=== PATIENT | female | born 1990 | race Caucasian/White ===

== ENCOUNTER 2019-02-28 23:04 | Inpatient (IN) | payer OTHER ==
[2019-02-28] MEDS ORDERED: Sodium Chloride 0.9% 10 ML SDV IV PRN (23:36)
[2019-02-28] MEDS ORDERED: Sodium Chloride 0.9% 2.5 ML Syringe FLUSH PRN (23:36)
[2019-02-28] MEDS ORDERED: Sodium Chloride 0.9% 10 ML Syringe FLUSH PRN (23:36)
[2019-02-28] MEDS ORDERED: Lactated Ringers 1,000 ML IV SCH ×2 (23:45)
[2019-02-28] MEDS ORDERED: Oxytocin/0.9 % Sodium Chloride 30 UNIT/500 ML BAG IV SCH (23:45)
[2019-02-28] MEDS ORDERED: Magnesium Sulfate/Water 20 GM/500 ML BAG IV SCH (23:45)
[2019-02-28] MEDS ORDERED: Betamethasone Acetate/Betamethasone Sod Phosphate 30 MG/5 ML MDV IM ONE (23:46)
[2019-02-28] MEDS ORDERED: Ampicillin 2 GM AdvVial IV ONE (23:47)
[2019-02-28] MEDS ORDERED: Ampicillin 2 GM in Sodium Chloride 0.9% 100 ML IV ONE (23:47)
[2019-02-28] MEDS ORDERED: Magnesium Sulfate/Water 100 ML ONE (23:48)
[2019-02-28] MEDS ORDERED: Butorphanol 1 MG/ML SDV IVPUSH PRN (23:48)
[2019-02-28] MEDS ORDERED: Methylergonovine 0.2 MG/1 ML Amp IM PRN (23:48)
[2019-02-28] MEDS ORDERED: Lidocaine 1% 50 ML MDV INJECT PRN (23:48)
[2019-02-28] MEDS ORDERED: Sodium Chloride 0.9% 100 ML ONE (23:48)
[2019-02-28] MEDS ORDERED: Tranexamic Acid 1,000 MG in Sodium Chloride 0.9% 100 ML IV PRN (23:48)
[2019-02-28] MEDS ORDERED: Misoprostol 200 MCG Tab PO PRN (23:48)
[2019-02-28] MEDS ORDERED: Water For Irrigation,Sterile 1,000 ML Container IRR PRN (23:48)
[2019-02-28] MEDS ORDERED: Nalbuphine 10 MG/1 ML Vial IVPUSH PRN (23:48)
[2019-02-28] MEDS ORDERED: Carboprost Tromethamine 250 MCG/1 ML Amp IM PRN (23:48)
[2019-02-28] MEDS ORDERED: Betamethasone Acetate/Betamethasone Sod Phosphate 30 MG/5 ML MDV ONE (23:48)
[2019-02-28] MEDS ORDERED: Magnesium Sulfate/Water 4 GM in Premix Bag 1 BAG IV ONE (23:54)
[2019-02-28] MEDS ORDERED: Calcium Gluconate 10% 1 GM/10 ML SDV IVPUSH PRN (23:54)
[2019-03-01] MEDS ORDERED: Magnesium Sulfate/Water 20 GM/500 ML BAG ONE (00:03)
[2019-03-01] MEDS ORDERED: Ampicillin 1 GM in Sodium Chloride 0.9% 50 ML IV SCH ×2 (00:45→04:00)
--- NOTE | 2019-03-01 01:54 | US ---
INDICATION: labor, assess estimated weight. TECHNIQUE: Ultrasound OB pelvis transabdominal. Real-time patel-scale imaging of the fetus was performed as well as color Doppler and spectral Doppler analysis of the umbilical artery. COMPARISON: Obstetric ultrasound 02/24/2019 FINDINGS: Single live intrauterine gestation in vertex presentation with a clinical age of 32 weeks 3 days. The following biometric measurements were obtained: Biparietal diameter: 8.3 centimeters corresponding to 33 weeks 2 days. Head circumference: 31.4 centimeters corresponding with 35 weeks 2 days. Abdominal circumference: 26.5 centimeters corresponding to 30 weeks 5 days. Femur length: 6.5 centimeters corresponding to 33 weeks 5 days. The weight is estimated at 1927 grams, the 33rd percentile. IMPRESSION.: 1. Single live intrauterine gestation with a clinical age of 32 weeks 3 days in vertex presentation. 2. Limited obstetric ultrasound performed for weight has an estimated weight of 1927 grams which is at the 33rd percentile. Dictated by Andres Subramanian MD @ Mar 01 2019 1:50AM Signed by Dr. Andres Subramanian @ Mar 01 2019 1:53AM
--- NOTE | 2019-03-01 02:30 | HP ---
DATE OF : 1990 PRIMARY CARE PHYSICIAN: None PCP CHIEF COMPLAINT: Contractions. HISTORY OF PRESENT ILLNESS: This is a 29-year-old female G2, P0-1-0-1. She presents at 38 and 3/7th weeks gestation with contractions that are every 5 minutes and have been occurring over the last 2 to 3 hours. She denies loss of fluids. She reports normal movement. Her care has been complicated by history of delivery at 28 weeks with her prior . She has received 17 hydroxyprogesterone injections weekly since the early second trimester and has not had any labor symptoms until this evening. She is blood type O positive, rubella immune. She was noted to have a left ventricular echogenic focus on screening ultrasound in the office, otherwise, normal ultrasound. Her EDC is 04/23/2019 by LMP consistent with a 9-week ultrasound. PAST OBSTETRIC HISTORY: Significant for, at 2016 delivery of a 28 weeks and 6 days live born male born at [facility] in [place] transferred out of [place] due to labor. PAST MEDICAL HISTORY: Negative for chronic illness. PAST SURGICAL HISTORY: [place] tooth extraction. ALLERGIES: None known. MEDICATIONS: vitamins and Cathryn. FAMILY HISTORY: Significant for maternal aunt and maternal grandfather with lung cancer. Maternal grandmother with renal cancer. Paternal grandfather with heart disease. SOCIAL HISTORY: She is to her , [place]. She denies use of alcohol during the . She drinks rarely outside of the . She is a teacher. PHYSICAL EXAMINATION: VITAL SIGNS: Temperature is 97.3, pulse is 97, blood pressure is 126/73, heart tones are 125, moderate variability, accelerations present, no decelerations. Contractions are every 3 to 5 minutes, fairly strong in intensity. GENERAL: She is alert and oriented. She is breathing through her contractions. NECK: Supple without lymphadenopathy. LUNGS: Clear bilaterally. CV: Regular without murmur. ABDOMEN: Soft, gravid, nontender. EXTREMITIES: Showed trace edema. GENITOURINARY: Sterile speculum exam reveals no abnormal discharge. Cervical exam is 4 cm, 90%, -1 station. LABORATORY DATA: Cultures are obtained for group B strep. ASSESSMENT AND PLAN: A 32 and 3/7th weeks intrauterine with labor. Group B Strep culture has been obtained. Ampicillin initiated. She has been given betamethasone 12 mg IM for lung maturity. She has been counseled regarding prematurity. Her prior delivery was in [place] and her pocketed spring assembler was Dr. Stevenson and she prefers that the baby be transferred after delivery if that ensues to the facility where Dr. Stevenson practices, which is currently at [facility] in [place]. We will obtain an ultrasound for estimated weight and fluid, reassess cervical length. She has received magnesium 4 g bolus and 2 g/hour and if there is further cervical change, Catering Coordinator will be notified as well as the NICU in [place]. We will attempt tocolysis. I do not anticipate it will be successful based on her contraction pattern and strength. The patient understands this and that her cervical dilatation and situation is not stable for transfer and that the baby will be transferred after delivery with expected delivery here in [place]. LUL SCHULER /[id number]
[2019-03-01] MEDS ORDERED: Dextrose 10% in Water 500 ML ONE (04:13)
[2019-03-01] MEDS ORDERED: Docusate Sodium 100 MG Cap PO PRN (04:14)
[2019-03-01] MEDS ORDERED: Ibuprofen 400 MG Tab PO PRN (04:14)
[2019-03-01] MEDS ORDERED: Benzocaine/Menthol 20%-0.5% Spray 78 GM Cannister TOP PRN (04:14)
[2019-03-01] MEDS ORDERED: Acetaminophen 500 MG Tab PO PRN ×2 (04:14)
[2019-03-01] MEDS ORDERED: Methylergonovine 0.2 MG/1 ML Amp IM PRN (04:14)
[2019-03-01] MEDS ORDERED: Ibuprofen 800 MG Tab PO PRN (04:14)
[2019-03-01] MEDS ORDERED: Bisacodyl 10 MG Supp RECTAL PRN (04:14)
[2019-03-01] MEDS ORDERED: Lanolin 100% Cream 7 GM Tube TOP PRN (04:14)
[2019-03-01] MEDS ORDERED: Witch Hazel Medicated Pads 40/Jar TOP PRN (04:14)
--- NOTE | 2019-03-01 04:16 | PCM.OPNOTE ---
- General Post-Op/Procedure Note Date of Surgery/Procedure: 03/01/19 Findings: vaginal delivery of live male at 32/3 weeks gestation. Apgars 7 and 8. Weight pending. 3VC. Placenta intact. Pre Op Diagnosis: 32/3 IUP presenting in labor. Post-Op Diagnosis: same Primary Surgeon: Gisele Lerner Knotting Machine Operator Portable: Estela Pena Role of Knotting Machine Operator Portable: 4th year medical student EBL in mLs: 200 Condition: Good
--- NOTE | 2019-03-01 06:00 | OR ---
SURGEON: Gisele Lerner M.D. DATE OF PROCEDURE: 03/01/2019 PREOPERATIVE DIAGNOSES: 1. 32-3/7 weeks' intrauterine . 2. labor. POSTOPERATIVE DIAGNOSES: 1. 32-3/7 weeks' intrauterine . 2. labor. PROCEDURE: Magnesium tocolysis followed by spontaneous vaginal delivery. PRIMARY SURGEON: Gisele Lerner MD GREEN MEAT PACKER: Estela Pena MS4 ANESTHESIA: None. ESTIMATED BLOOD LOSS: Less than 200 mL. FINDINGS: A live born male. Apgars and weight are pending at the time of dictation. Placenta spontaneous, Tafoya, intact with 3 vessels. Perineum intact. BRIEF HISTORY: This is a 29-year-old female, G2, P0-1-0-1 with one prior 28-week delivery. She presents at 32-3/7 weeks' gestation in active spontaneous labor, initially 4 cm dilated with bulging membranes. She was started on magnesium. She received 2 g of ampicillin IV and then 12 mg of betamethasone IM. She was admitted for labor. Over the following hour, she changed to 5 cm dilatation. The magnesium was continued. Peds was notified of the cervical change, anticipated vaginal delivery locally as she was not stable for transfer. The senior care provider did call the transport team from [facility] in [place] for transporting the after , and she continued to slowly progress despite the magnesium. The magnesium was discontinued when she was 9 cm dilated, and she did receive her second dose of ampicillin immediately prior to delivery. DESCRIPTION OF PROCEDURE: With the patient in dorsal lithotomy position, the patient pushed intermittently over 30-minute time period to a 5 plus station. At this time, spontaneous rupture of membranes occurred with subsequent delivery of the head in the right occiput anterior position and the 's shoulders and body without any difficulty. The infant was bulb suctioned by nose and mouth, and the was briefly handed to the mother in the presence of senior care provider and the nurses attending delivery. The infant was a liveborn male. Apgars and weight are pending. After approximately 1 minute, the cord was doubly clamped and cut, and the was handed to the waiting senior care provider where supplemental oxygen using PEEP was provided. The had good tone and good color at the time of delivery and did cry spontaneously. Cord blood was collected for cord ABGs as well as routine cord blood sampling. Pitocin was initiated after delivery of the to assist with delivery of the placenta which was delivered spontaneously, Tafoya, intact, with 3 vessels. Upon inspection of the pelvis and perineum, there were no periurethral, vaginal sidewall, cervical, or rectal lacerations. EBL was less than 200 mL. There were no known complications. Mother and baby are both in LDR with the baby being attended to by senior care provider currently with PEEP, awaiting the NICU transport team. LUL SCHULER /[id number] MTDD
[2019-03-01 10:56] VITALS: BP 117/69; PULSE 83
--- NOTE | 2019-03-01 11:19 | PCM.PNPP ---
- General Info Date of Service: 03/01/19 Admission Dx/Problem (Free Text): PPD #0 after PTSVD, baby in [place] and patient would like to be discharged to be with her baby. She has minimal lochia, denies pain. She is pumping. Functional Status: Reports: Pain Controlled - Review of Systems General: Reports: No Symptoms HEENT: Reports: No Symptoms Pulmonary: Reports: No Symptoms Cardiovascular: Reports: No Symptoms Gastrointestinal: Reports: No Symptoms Genitourinary: Reports: No Symptoms Musculoskeletal: Reports: No Symptoms Skin: Reports: No Symptoms Neurological: Reports: No Symptoms Psychiatric: Reports: No Symptoms - Patient Data Vital Signs - Most Recent: Last Vital Signs Temp 37.3 C 03/01/19 09:00 Pulse 83 03/01/19 09:00 Resp 16 03/01/19 09:00 BP 117/69 03/01/19 09:00 Pulse Ox 97 03/01/19 09:00 Weight - Most Recent: 75.296 kg I&O - Last 24 Hours: Intake & Output 02/28/19 03/01/19 03/01/19 22:59 06:59 14:59 Output Total 600 Balance -600 Lab Results - Last 24 Hours: Laboratory Results - last 24 hr 02/28/19 03/01/19 03/01/19 Range/Units 23:15 00:03 00:03 WBC 15.41 H (4.0-11.0) K/uL RBC 3.95 L (4.30-5.90) M/uL Hgb 11.4 L (12.0-16.0) g/dL Hct 33.8 L (36.0-46.0) % MCV 85.6 (80.0-98.0) fL MCH 28.9 (27.0-32.0) pg MCHC 33.7 (31.0-37.0) g/dL RDW Std Deviation 42.6 (28.0-62.0) fl RDW Coeff of Philippe 14 (11.0-15.0) % Plt Count 242 (150-400) K/uL MPV 11.00 (7.40-12.00) fL Nucleated RBC % 0.0 /100WBC Nucleated RBCs # 0 K/uL Cord ABG pH (7.18-7.38) Cord ABG Base Excess (-10--2) Cord VBG pH (7.25-7.45) Cord VBG Base Excess (-10--2) Magnesium (1.8-2.4) mg/dL Fibronectin POSITIVE Blood Type O POSITIVE Antibody Screen NEGATIVE 03/01/19 03/01/19 03/01/19 Range/Units 00:03 03:50 10:01 WBC (4.0-11.0) K/uL RBC (4.30-5.90) M/uL Hgb 11.7 L (12.0-16.0) g/dL Hct 34.9 L (36.0-46.0) % MCV (80.0-98.0) fL MCH (27.0-32.0) pg MCHC (31.0-37.0) g/dL RDW Std Deviation (28.0-62.0) fl RDW Coeff of Philippe (11.0-15.0) % Plt Count (150-400) K/uL MPV (7.40-12.00) fL Nucleated RBC % /100WBC Nucleated RBCs # K/uL Cord ABG pH 7.320 (7.18-7.38) Cord ABG Base Excess -7 (-10--2) Cord VBG pH 7.346 (7.25-7.45) Cord VBG Base Excess -7 (-10--2) Magnesium 1.5 L (1.8-2.4) mg/dL Fibronectin Blood Type Antibody Screen Med Orders - Current: Current Medications Acetaminophen (Tylenol Extra Strength) 500 mg PO Q4H PRN PRN Reason: Pain Acetaminophen (Tylenol Extra Strength) 1,000 mg PO Q4H PRN PRN Reason: Pain Benzocaine/Menthol (Dermoplast Pain Relief 20%-0.5% Dwarf) 78 gm TOP ASDIRECTED PRN PRN Reason: Perineal Comfort Measure Bisacodyl (Dulcolax) 10 mg RECTAL ONETIME PRN PRN Reason: Constipation Docusate Sodium (Colace) 100 mg PO BID PRN PRN Reason: Constipation Emollient Ointment (Lansinoh Hpa) 0 gm TOP ASDIRECTED PRN PRN Reason: Sore Nipples Ibuprofen (Motrin) 400 mg PO Q4H PRN PRN Reason: Pain Ibuprofen (Motrin) 800 mg PO Q6H PRN PRN Reason: Pain Methylergonovine Maleate (Methergine) 0.2 mg IM ONETIME PRN PRN Reason: Excessive Vaginal Bleeding Witrita Benson (Tucks) 1 pad TOP ASDIRECTED PRN PRN Reason: comfort care Discontinued Medications Ampicillin Sodium (Ampicillin) Confirm Administered Dose 2 gm IV .[facility] ONE Stop: 02/28/19 23:48 Betamethasone Acet/Betameth SodPhos (Celestone Soluspan 6 Mg/Ml) 12 mg IM ONETIME ONE Stop: 02/28/19 23:47 Last Admin: 02/28/19 23:53 Dose: 12 mg Betamethasone Acet/Betameth SodPhos (Celestone Soluspan 6 Mg/Ml) Confirm Administered Dose 30 mg .ROUTE .[facility] ONE Stop: 02/28/19 23:49 Butorphanol Tartrate (Stadol) 1 mg IVPUSH Q1H PRN PRN Reason: Pain Calcium Gluconate (Calcium Gluconate) 1 gm IVPUSH ASDIRECTED PRN PRN Reason: respiratory distress Carboprost Tromethamine (Hemabate Ds) 250 mcg IM ASDIRECTED PRN PRN Reason: Post Hemorrhage Lactated Ringer's (Ringers, Lactated) 1,000 mls @ 500 mls/hr IV ASDIRECTED [facility] Last Admin: 02/28/19 23:33 Dose: 500 mls/hr Ampicillin Sodium 2 gm/ Sodium (Chloride) 100 mls @ 200 mls/hr IV ONETIME ONE Stop: 03/01/19 00:16 Last Admin: 02/28/19 23:56 Dose: 200 mls/hr Magnesium Sulfate (Magnesium Sulfate In Water Premix) Confirm Administered Dose 100 mls @ as directed .ROUTE .[facility] ONE Stop: 02/28/19 23:49 Last Admin: 03/01/19 00:00 Dose: 400 mls/hr Sodium Chloride (Normal Saline) Confirm Administered Dose 100 mls @ as directed .ROUTE .[facility] ONE Stop: 02/28/19 23:49 Lactated Ringer's (Ringers, Lactated) 1,000 mls @ 150 mls/hr [facility] Last Admin: 03/01/19 00:55 Dose: 150 mls/hr Oxytocin/Sodium Chloride (Oxytocin 30 Unit/500 Ml-Ns) 30 unit in 500 mls @ 500 mls/hr IV TITRATE [facility] Last Admin: 03/01/19 03:50 Dose: 500 mls/hr Tranexamic Acid 1,000 mg/ (Sodium Chloride) 110 mls @ 660 mls/hr IV ONETIME PRN PRN Reason: Bleeding Magnesium Sulfate 4 gm/ Premix 100 mls @ 400 mls/hr IV BOLUS ONE Stop: 03/01/19 00:08 Magnesium Sulfate (Magnesium Sulfate In Water Premix) 20 gm in 500 mls @ 50 mls /hr IV ASDIRECTED [facility] Last Admin: 03/01/19 00:26 Dose: 2 gm/hr, 50 mls/hr Magnesium Sulfate (Magnesium Sulfate In Water Premix) Confirm Administered Dose 20 gm in 500 mls @ as directed .ROUTE .[facility] ONE Stop: 03/01/19 00:04 Ampicillin Sodium 1 gm/ Sodium (Chloride) 50 mls @ 100 mls/hr IV Q4H KATHLEEN Ampicillin Sodium 1 gm/ Sodium (Chloride) 50 mls @ 100 mls/hr IV Q4H KATHLEEN Dextrose/Water (Dextrose 10% In Water) Confirm Administered Dose 500 mls @ as directed .ROUTE .[facility] ONE Stop: 03/01/19 04:14 Lidocaine HCl (Xylocaine 1%) 50 ml INJECT ONETIME PRN PRN Reason: Laceration repair Methylergonovine Maleate (Methergine) 0.2 mg IM ASDIRECTED PRN PRN Reason: Post Hemorrhage Misoprostol (Cytotec) 200 mcg PO ONETIME PRN PRN Reason: Post Hemorrhage Nalbuphine HCl (Nubain) 10 mg IVPUSH Q1H PRN PRN Reason: Pain (severe 7-10) Sodium Chloride (Saline Flush) 10 ml FLUSH ASDIRECTED PRN PRN Reason: Keep Vein Open Sodium Chloride (Saline Flush) 2.5 ml FLUSH ASDIRECTED PRN PRN Reason: Keep Vein Open Sodium Chloride (Normal Saline) 10 ml IV ASDIRECTED PRN PRN Reason: IV Use Sterile Water (Sterile Water For Irrigation) 1,000 ml IRR ASDIRECTED PRN PRN Reason: delivery - Infant Interaction Disposition, : Not Applicable Feeding: Other (see below) (pumping) Support Person: - Recovery Exam Fundal Tone: Firm Fundal Level: 2 Fingerbreadths Below Umbilicus Fundal Placement: Midline Lochia Amount: Small Lochia Color: Rubra/Red Perineum Description: Intact, Minimal Bruising/Swelling Episiotomy/Laceration: None Bladder Status: Voiding Urinary Elimination: Voided - Exam General: Alert, Oriented HEENT: Pupils Equal Neck: Supple Lungs: Normal Respiratory Effort GI/Abdominal Exam: Soft, Non-Tender, No Organomegaly, No Distention Extremities: Normal Range of Motion, Non-Tender, No Pedal Edema Skin: Warm, Dry, Intact Wound/Incisions: Healing Well Psy/Mental Status: Alert, Normal Affect, Normal Mood - Problem List & Annotations (1) delivery SNOMED Code(s): 366811938, 543769792 Code(s): O60.10X0 - LABOR W DELIVERY, UNSP TRIMESTER, UNSP Status: Acute Current Visit: Yes (2) Vaginal delivery SNOMED Code(s): 123066674 Code(s): O80 - ENCOUNTER FOR FULL-TERM UNCOMPLICATED DELIVERY Status: Acute Current Visit: Yes - Problem List Review Problem List Initiated/Reviewed/Updated: Yes - My Orders Last 24 Hours: My Active Orders 02/28/19 23:25 Non Stress Test [RC] PER UNIT ROUTINE Up ad Nella [RC] ASDIRECTED Vaginal Exam [RC] Click to Edit Vital Signs [RC] PER UNIT ROUTINE 02/28/19 23:49 Non Stress Test [RC] PER UNIT ROUTINE Notify Provider [RC] PRN Vital Signs [RC] PER UNIT ROUTINE 02/28/19 23:50 Notify Provider [RC] PRN 02/28/19 23:54 Communication Order [RC] Per Unit Routine Communication Order [RC] Per Unit Routine Height and Weight [RC] DAILY Intake and Output [RC] QSHIFT Notify Provider [RC] PRN Vital Signs [RC] PER UNIT ROUTINE 02/28/19 23:55 Heart Tones [RC] ASDIRECTED 03/01/19 04:14 Patient Status [ADT] Routine May Shower [RC] ASDIRECTED Notify Provider Vital Signs [RC] ASDIRECTED Up ad Nella [RC] ASDIRECTED Vital Signs [RC] PER UNIT ROUTINE Acetaminophen [Tylenol Extra Strength] 1,000 mg PO Q4H PRN Acetaminophen [Tylenol Extra Strength] 500 mg PO Q4H PRN Benzocaine/Menthol [Dermoplast Pain Relief 20%-0.5% Dwarf] 78 gm TOP ASDIRECTED PRN Bisacodyl [Dulcolax] 10 mg RECTAL ONETIME PRN Docusate Sodium [Colace] 100 mg PO BID PRN Ibuprofen [Motrin] 400 mg PO Q4H PRN Ibuprofen [Motrin] 800 mg PO Q6H PRN Lanolin [Lansinoh HPA] See Dose Instructions TOP ASDIRECTED PRN Methylergonovine [Methergine] 0.2 mg IM ONETIME PRN [place] [Tucks] 1 pad TOP ASDIRECTED PRN Assess Lochia [WOMSER] Per Unit Routine Assess Uterine Involution [WOMSER] Per Unit Routine Breast Pump [WOMSER] Per Unit Routine Perineal Care [OM.PC] Per Unit Routine Peripheral IV Discontinue [OM.PC] Routine Resuscitation Status Routine 03/01/19 Breakfast Regular Diet [DIET] - Assessment Assessment:: PPD0 after PTSVD. stable, hemoglobin is normal, she would like be released to travel to [place] to be with baby. - Plan Plan:: Discharge instructions reviewed
== END 2019-03-01 12:33 | disposition home or self-care (01) | DRG 807 ==
LOC: MW.OBCHECK 23:04 → MW.OB 23:25 → MW.OBCHECK 23:49 → MW.OB 23:49 → OBSVTOIN 03-01 03:50
PROVIDERS: ADMIT Obstetrics & Gynecology; ATTEND Obstetrics & Gynecology
PROC: 10E0XZZ Delivery of Products of Conception, External Approach (ICD-10-PCS; principal; 2019-03-01)
DX: O60.14X0 Preterm labor third trimester with preterm delivery third trimester, not applicable or unspecified (principal); Z37.0 Single live birth; Z3A.32 32 weeks gestation of pregnancy
CPT/HCPCS: 36415; 59025; 59409; 76815; 76815-26; 82731; 82803; 83735; 85014; 85018; 85027; 86850; 86900; 86901; 88307; A4217; J0290; J2590; J3475; J7030; J7120